=== PATIENT | female | born 1980 | race Caucasian/White ===

== ENCOUNTER 2020-01-31 16:33 | Emergency (ER) | payer OTHER ==
[~2020-01-31] VITALS: Ht 154.9 cm; Wt 70.1 kg
--- NOTE | 2020-01-31 16:39 | NUR ---
MALLORY RN: C-COLAR PLACED
[2020-01-31 18:11] VITALS: BP 120/78
== END 2020-01-31 19:23 | disposition home or self-care (01) ==
LOC: ED 19:13
DX: S16.1XXA Strain of muscle, fascia and tendon at neck level, initial encounter (principal); S09.90XA Unspecified injury of head, initial encounter; R42 Dizziness and giddiness; R51 Headache; R11.0 Nausea; V49.9XXA Car occupant (driver) (passenger) injured in unspecified traffic accident, initial encounter; W22.10XA Striking against or struck by unspecified automobile airbag, initial encounter; Y93.89 Activity, other specified; Y92.488 Other paved roadways as the place of occurrence of the external cause; Y99.8 Other external cause status
CPT/HCPCS: 70450; 72125; 99285

== ENCOUNTER 2020-09-25 11:13 | Emergency (ER) | payer OTHER ==
[~2020-09-25] VITALS: Ht 154.9 cm; Wt 70.0 kg
[2020-09-25] MEDS ORDERED: SODIUM CHLORIDE FLUSH 10ML SYR IVF ONE (12:00)
[2020-09-25] MEDS ORDERED: ONDANSETRON 2MG/ML, 2ML IVPush ONE (12:00)
--- NOTE | 2020-09-25 12:01 | NUR ---
TASK RN: PT AMBULATORY TO ROOM 14 W/ C/O N/V AND R FLANK PAIN STARTD TODAY AT 0400. PT STATES IT FEELS LIKE WHEN SHE HAS HAD A KIDNEY STONE IN THE PAST BUT MUCH MORE PAINFUL. PT PROVIDED W/ WARM BLANKET. PLACED ON MONITORS. VSS. [place] [facility] AT BEDSIDE FOR EVAL.
[2020-09-25] MEDS ORDERED: ONDANSETRON 2MG/ML, 2ML ONE (12:03)
[2020-09-25] MEDS ORDERED: MORPHINE SULFATE 4 MG/ML, 1ML ONE ×2 (12:03→12:34)
[2020-09-25] MEDS: MORPHINE SULFATE 4 MG/ML, 1ML IVPush PRN ×2 (12:05→12:39)
--- NOTE | 2020-09-25 12:15 | NUR ---
TASK RN: EVENS COLLECTED, LABELED, AND WALKED TO LAB.
[2020-09-25 12:22] LABS: BASOPHILS % (AUTO) 1 % (0-1); EOSINOPHILS % (AUTO) 2 % (1-7); LYMPHOCYTES % (AUTO) 23 % (22-44); MEAN CORPUSCULAR HEMOGLOBIN 30.1 pg (27.0-34.8); MEAN CORPUSCULAR HGB CONC 33.9 g/dL (32.4-35.8); MEAN PLATELET VOLUME 8.4 fL (7.4-10.4); MONOCYTES % (AUTO) 6 % (2-9); NEUTROPHILS % (AUTO) 69 % (42-75); PLATELET COUNT 271 x10^3/uL (130-400); RED BLOOD COUNT 4.51 x10^6/uL (3.82-5.3); RED CELL DISTRIBUTION WIDTH 13.2 % (9.6-15.2)
[2020-09-25 12:23] LABS: MD NO
--- NOTE | 2020-09-25 12:24 | NUR ---
TASK RN: REPORT GIVEN TO ASIF GALE.
[2020-09-25 12:31] LABS: MICROSCOPIC INDICATED
--- NOTE | 2020-09-25 12:31 | NUR ---
REPORT FROM MIRIAM GOLD. ASSUMED CARE OF PATIENT PT BACK FROM CT AND COMPLAINING OF 10/10 PAIN. WILL MEDICATE PER EMAR. CALL LIGHT WITHIN REACH.
[2020-09-25 12:32] LABS: CHLORIDE 109 mmol/L (98-107)
[2020-09-25 12:45] LABS: ALANINE AMINOTRANSFERASE 30 U/L (12-78); ALBUMIN 4.2 g/dL (3.4-5.0); ALKALINE PHOSPHATASE 64 U/L (45-117); ANION GAP 8 mmol/L (5-15); BILIRUBIN,TOTAL 0.6 mg/dL (0.2-1.0); TOTAL PROTEIN 7.8 g/dL (6.4-8.2)
[2020-09-25] MEDS ORDERED: KETOROLAC 30 MG/1 ML IVPush ONE (13:00)
[2020-09-25] MEDS ORDERED: METOCLOPRAMIDE 5 MG/ML, 2ML ONE (13:24)
[2020-09-25] MEDS ORDERED: KETOROLAC 30 MG/1 ML ONE (13:24)
[2020-09-25] MEDS ORDERED: METOCLOPRAMIDE 5 MG/ML, 2ML IVPush ONE (13:30)
--- NOTE | 2020-09-25 13:33 | NUR ---
MEDICATED PT PER EMAR, VITALS UPDATED, CALL LIGHT WITHIN REACH. NO NEEDS VERBALIZED AT THIS TIME
[2020-09-25 14:07] VITALS: BP 118/71
== END 2020-09-25 14:18 | disposition home or self-care (01) ==
LOC: ED 13:40
DX: N20.1 Calculus of ureter (principal); K21.9 Gastro-esophageal reflux disease without esophagitis; Z90.49 Acquired absence of other specified parts of digestive tract; Z88.0 Allergy status to penicillin; Z88.8 Allergy status to other drugs, medicaments and biological substances
CPT/HCPCS: 36415; 74176; 80053; 81001; 83690; 84703; 85025; 96374; 96375; 96376; 99285; J1885; J2270; J2405; J2765